=== PATIENT | female | born 1945 | race Caucasian/White ===

== ENCOUNTER 2017-09-01 09:25 | Day surgery (SDC) | payer OTHER ==
[2017-09-01] MEDS: MIDAZOLAM HCL 5 MG/5 ML VIAL ONE ×4 (11:58→12:04)
[2017-09-01] MEDS: MEPERIDINE HCL/PF 100 MG/ML AMP ONE ×2 (11:58→12:06)
[2017-09-01 18:02] VITALS: BP_SYST 90
== END 2017-09-01 13:30 | disposition home or self-care (01) ==
LOC: SDS 09:25 → SMU 10:18 → SDS 13:30
PROVIDERS: ATTEND Internal Medicine Gastroenterology
DX: D12.0 Benign neoplasm of cecum (principal); D12.4 Benign neoplasm of descending colon; K64.8 Other hemorrhoids
CPT/HCPCS: 45385; 45381; 88305; J2175; J2250; 45380